=== PATIENT | male | born 1965 | race Caucasian/White ===

== ENCOUNTER → 2018-02-26 | Outpatient (CLI) | payer OTHER ==
--- NOTE | 2018-02-27 22:25 | MR ---
EXAMINATION TYPE: MR hip LT wo con DATE OF EXAM: 02/26/2018 COMPARISON: NONE HISTORY: LEFT HIP PAIN Standard multiplanar, multisequence MRI departmental protocol Multiplanar multiecho imaging of the pelvis and left hip was performed with no contrast.. FINDINGS: The proximal femurs have normal signal pattern without evidence of a fracture. There is inc reased focal fluid signal in the left acetabulum that measures 2 x 1 cm consistent with subchondral e amy and degenerative cyst formation. I see no acetabular fracture. There is a patchy mottled signal pattern throughout the bones of the pelvis and more noticeable involving the regions around the sacro iliac joints. I see no pelvic mass. There is no free fluid in the pelvis. Bladder distends smoothly. IMPRESSION: No fracture seen. Subchondral edema and fluid involving the left acetabulum consistent with osteoarth ritis and degenerative cyst formation. No evidence of avascular necrosis. Patchy mottled signal pattern in the bony pelvis. Correlation with a plain film would be helpful. Thi s could relate to Paget's disease. Osseous metastatic disease is also possible.
== END | disposition home or self-care (01) ==
LOC: RADMRIMAIN 11:36
PROVIDERS: ATTEND Internal Medicine Hematology & Oncology
DX: M89.8X8 Other specified disorders of bone, other site (principal)

== ENCOUNTER → 2018-03-02 | Outpatient (CLI) | payer OTHER ==
--- NOTE | 2018-03-04 12:13 | MR ---
MR thoracic spine with and without contrast HISTORY: back pain Multiplanar multisequence imaging obtained through the thoracic spine the postcontrast images perform ed following 10 cc Gadavist IV. Correlation to prior bone scan dated 02/02/2018 and hip MRI 02/26/2018 Heterogeneous marrow signal is noted especially in the mid thoracic region from T6 through T8. Ankylo sis is noted anteriorly at these vertebral segments. Anteriorly at T5 increased signal is noted on T2 -weighted sequences which show some enhancement following contrast administration. Some enhancement i s also present along the anterior aspects of T6, T7 and T8. There is some loss of height at T2 and C6 with some associated heterogeneous enhancement. There is no significant spinal stenosis. No signific ant foraminal encroachment. Focus of enhancement present at the inferior endplate of T10 is noted isreal suring 2 cm left midline posteriorly within the vertebral body, some enhancement of the disc space al so present T10-11. There are multilevel small posterior disc herniations causing only minimal anterior mass effect on th e thecal sac, some anterolateral mass effect on the thecal sac present at the endplate T5-6 to the ri ght of midline as well as T6-7 to the left of midline possibly contacting the anterior cervical cord. T9-10 also show some anterolateral mass effect on the thecal sac at the level of the endplate disc c omplex. 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 Not mentioned in the report of the bone scan was abnormal activity within the lumbar spine, lumbar MRI may be of be nefit. Mild degenerative disc changes. No significant spinal stenosis. Additional findings above.
== END | disposition home or self-care (01) ==
LOC: RADMRIMAIN 12:20
PROVIDERS: ATTEND Internal Medicine Hematology & Oncology
DX: M51.24 Other intervertebral disc displacement, thoracic region (principal); M47.814 Spondylosis without myelopathy or radiculopathy, thoracic region; M43.24 Fusion of spine, thoracic region
CPT/HCPCS: 72157; A9581

== ENCOUNTER → 2018-04-05 | Outpatient (CLI) | payer OTHER ==
--- NOTE | 2018-04-05 17:26 | MR ---
EXAMINATION TYPE: MR lumbar spine wo con DATE OF EXAM: 04/05/2018 COMPARISON: Thoracic spine MRI March 02, 2018 HISTORY: Lt hip pain, abnormal thoracic MRI TECHNIQUE: Multiplanar, multisequence imaging of the lumbar spine is performed without IV contrast. FINDINGS: There is heterogeneous abnormal signal with mild compression causing increased AP diameter L2 level. Some posterior retropulsion is noted. Sagittal images of the lumbar spine show vertebral geraldine dy heights and alignment otherwise to appear satisfactory. Multilevel disc desiccation is present. Th ere is advanced disc space narrowing with ossific fusion at lumbosacral junction. The conus medullar is is normal in position and signal ending at superior L1 level. Axial images show mild facet degenerative changes T12-L1 and L1-L2 levels. Bilateral neural foramina are felt patent. There is posterior retropulsion of the L2 effacing anterior thecal sac. There is additional facet art hropathy L2-L3 level. Bilateral neural foramina are felt patent. Axial images at L3-L4 level show mild facet degenerative changes bilaterally. Spinal canal is preserv ed. Bilateral neural foramina are patent. Axial images at L4-L5 level show mild facet degenerative changes bilaterally. There is broad-based po sterior disc protrusion minimally effacing anterior thecal sac. Bilateral neural foramina are patent. Axial images at L5-S1 level show mild to moderate facet degenerative changes bilaterally. Spinal abraham l is preserved. Bilateral neural foramina are patent. IMPRESSION: Abnormal appearance of the L2 vertebra could reflect Paget's disease, primary or secondar y bone tumor. Clinical correlation and correlation with outside imaging (CT, plain films, and/or bone scan) is advised. There is some posterior retropulsion causing most prominent spinal canal effacemen t or stenosis at this level. Degenerative change is most prominent L4-L5 level.
== END | disposition home or self-care (01) ==
LOC: RADMRIMAIN 16:28
PROVIDERS: ATTEND Neurological Surgery
DX: M47.816 Spondylosis without myelopathy or radiculopathy, lumbar region (principal); D48.9 Neoplasm of uncertain behavior, unspecified; M25.552 Pain in left hip
CPT/HCPCS: 72148

== ENCOUNTER → 2018-04-15 | Outpatient (CLI) | payer OTHER ==
--- NOTE | 2018-04-15 10:21 | MR ---
EXAMINATION TYPE: MR lumbar spine w con DATE OF EXAM: 04/15/2018 COMPARISON: Prior lumbar MRI dated 04/15/2018, thoracic MRI dated 03/02/2018, MRI 02/26/2018, bone scan f rom outside institution 02/02/2018, chest x-ray from outside institution 12/17/2017, left hip 02/02/2018 . 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 The compression deformity seen at L2 does show some enhancement following contrast administration. The trabecular pattern is diffusely increased within the affected areas involving the spine pelvis. E xpansion of the bones in the affected left hip is noted. Compression deformity of L2 that results in some mild spinal stenosis. There is no soft tissue component evident. Fatty marrow signal is thought to be maintained. IMPRESSION: Favor Paget's disease rather than metastatic disease or myeloproliferative disorder.
== END | disposition home or self-care (01) ==
LOC: RADMRIMAIN 08:33
PROVIDERS: ATTEND Neurological Surgery
DX: D48.9 Neoplasm of uncertain behavior, unspecified (principal); M25.552 Pain in left hip
CPT/HCPCS: 72149; A9581

== ENCOUNTER → 2018-08-13 | Outpatient (CLI) | payer OTHER ==
--- NOTE | 2018-08-13 08:59 | MR ---
EXAMINATION TYPE: MR cervical spine wo con DATE OF EXAM ORDERED: 08/13/2018 8:35 AM HISTORY: M54.12 radiculopathy cervical region. TECHNOLOGIST HISTORY AT TIME OF EXAM: radiculopathy cervical region COMPARISON: None. TECHNIQUE: Multiplanar, multiecho imaging of the cervical spine was obtained without contrast on a 1 .5 ahsan magnet. FINDINGS: Prevertebral soft tissues are normal. Vertebral body height and alignment are maintained. Atlantoaxial relationships are normal. There is a normal craniocervical junction. Cord signal is normal. At C2-C3, there is mild, bilateral intervertebral foraminal narrowing. There is no significant compre ssive discopathy. The facet and uncovertebral joints are unremarkable At C3-C4, there is bilateral intervertebral foraminal narrowing, worse on the left than the right. Th ere is no significant compressive discopathy. Facet and uncovertebral joints are unremarkable. At C4-C5, there is a diffuse disc displacement. There is bilateral intervertebral foraminal narrowing bilaterally. The facet and uncovertebral joints are unremarkable. At C5-C6, there is disc space loss and hypertrophic spondylosis. There is a diffuse disc displacement . There is bilateral intervertebral foraminal narrowing, slightly worse on the right than the left. T he facet and uncovertebral joints are unremarkable. At C6-C7, there is disc space loss and hypertrophic spondylosis. There is bilateral intervertebral fo raminal narrowing. There is a diffuse disc displacement. The facet and uncovertebral joints are unrem arkable. At C7-T1, there is bilateral intervertebral foraminal narrowing. There is no significant compressive discopathy. The facet and uncovertebral joints are unremarkable. IMPRESSION: 1. RELATIVELY SEVERE, MULTILEVEL INTERVERTEBRAL FORAMINAL NARROWING. 2. DEGENERATIVE DISC DISEASE AND HYPERTROPHIC SPONDYLOSIS, MOST MARKED AT C5-6 AND C6-7.
== END ==
LOC: RADMRIMAIN 08:08
PROVIDERS: ATTEND Neurological Surgery
DX: M99.71 Connective tissue and disc stenosis of intervertebral foramina of cervical region (principal); M50.122 Cervical disc disorder at C5-C6 level with radiculopathy; M47.22 Other spondylosis with radiculopathy, cervical region
CPT/HCPCS: 72141

== ENCOUNTER → 2018-08-23 | Outpatient (CLI) | payer OTHER ==
--- NOTE | 2018-08-23 12:23 | XR ---
EXAMINATION TYPE: XR cervical spine comp DATE OF EXAM: 08/23/2018 COMPARISON: NONE HISTORY: Pain TECHNIQUE: Four views are submitted. FINDINGS: The odontoid is intact. There are no compression deformities. The prevertebral soft tissue structur es are within normal limits. There is hypertrophic changes at all levels. Degenerative disc disease particularly noted at C5-6 and C6-C7. Foraminal encroachment C3-4, C4-5 and C5-C6 bilaterally. IMPRESSION: 1. Bilevel degenerative disc disease and hypertrophic changes with bilateral foraminal encroachment. Correlate with MRI as clinically warranted.
--- NOTE | 2018-08-23 12:24 | XR ---
EXAMINATION TYPE: XR ankle complete bilateral DATE OF EXAM: 08/23/2018 COMPARISON: NONE HISTORY: Pain FINDINGS: Three views of the ankle demonstrate the ankle mortise to be intact and symmetric. The joint spaces are preserved. The osseous structures are intact. Well-corticated ossific densities adjacent to the medial and lateral malleoli of the right ankle may been the basis of previous trauma. There are large spurs involving the calcaneus bilaterally. Slight deformity along the posterior rachel n of the distal tibia may been the basis of previous trauma. IMPRESSION: 1. No definite acute fracture or dislocation, if symptoms persist follow-up study in 7 to 10 days wou ld be suggested. 2. Bilateral sizable calcaneal spurs
--- NOTE | 2018-08-23 12:26 | XR ---
EXAMINATION TYPE: XR Hip Limited RT DATE OF EXAM: 08/23/2018 COMPARISON: NONE HISTORY: Pain TECHNIQUE: 2 views submitted FINDINGS: There is no evidence of erosive change or acute fracture. There is Lucent and sclerotic changes involving the right hemipelvis portions of the proximal femur. Moderate to severe concentric narrowing the joint space. No erosive changes. IMPRESSION: 1. No evidence of acute fracture or dislocation. Moderate to severe arthropathy. 2. Marrow abnormality is suggestive of Paget's disease or metastases correlate clinically.
== END | disposition home or self-care (01) ==
LOC: RADXRMAIN 11:16
PROVIDERS: ATTEND Family Medicine
DX: M50.322 Other cervical disc degeneration at C5-C6 level (principal); M53.82 Other specified dorsopathies, cervical region; M16.11 Unilateral primary osteoarthritis, right hip; M77.32 Calcaneal spur, left foot; M77.31 Calcaneal spur, right foot
CPT/HCPCS: 72050; 73501

== ENCOUNTER → 2019-06-02 | Outpatient (CLI) | payer OTHER ==
[~2019-06-02] MED LIST: SODIUM CHLORIDE 0.9% 500 ML 500 ML in EMPTY BAG 1 BAG IV PRN; ZOLEDRONIC ACID 5 MG in SODIUM CHLORIDE 0.9% 100 ML IV NR
[2019-06-02 13:14] VITALS: BP 132/77; PULSE 80; RESP 18; TEMP 98.3
== END ==
LOC: PROCWHC3 12:52
PROVIDERS: ATTEND Internal Medicine
DX: M88.89 Osteitis deformans of multiple sites (principal)
CPT/HCPCS: 96365; J3489

== ENCOUNTER → 2019-06-13 | Outpatient (CLI) | payer OTHER ==
[2019-06-14 03:16] LABS: Albumin 4.6 g/dL (3.80-4.90); Albumin/Globulin Ratio 2.09 (1.60-3.17); Anion Gap 9.7 mmol/L (4.00-12.00); BUN/Creat Ratio 13.75 Ratio (12.00-20.00); Calcium 8.5 mg/dL (8.7-10.3); Carbon Dioxide 25.3 mmol/L (21.6-31.8); Globulin 2.2 g/dL (1.6-3.3); Potassium 4.5 mmol/L (3.5-5.5); Total Bilirubin 0.3 mg/dL (0.3-1.2); Total Protein 6.8 g/dL (6.2-8.2)
== END | disposition home or self-care (01) ==
LOC: LABMAIN 18:06
PROVIDERS: ATTEND Internal Medicine
DX: M88.89 Osteitis deformans of multiple sites (principal)
CPT/HCPCS: 36415; 80053